=== PATIENT | male | born 1980 | race Hispanic/Latino ===

== ENCOUNTER 2018-03-24 23:58 | Emergency (ER) | payer BC ==
[2018-03-25] MEDS ORDERED: WATER FOR INJ,STERILE 10 ML ONE (00:57)
[2018-03-25] MEDS ORDERED: CEFTRIAXONE 1000 MG/VIAL ONE (00:57)
--- NOTE | 2018-03-25 01:07 | EDPHYS ---
Physician Documentation [facility] Name: Sunil Salinas Jr Age: 37 yrs Sex: Male : 1980 Arrival Date: 03/25/2018 Time: 00:02 Bed 6 Private MD: ED Physician Rancho Perdoza HPI: 03/25 00:58 This 37 yrs old Male presents to ER via Ambulatory with complaints of Leg Pain.gs 00:58 The patient presents with cellulitis of the medial aspect of right thigh. Description: gs The affected area is moderate sized, confluent, erythematous, warm. Onset: The symptoms/episode began/occurred yesterday. Possible cause(s): unknown. Associated signs and symptoms: Pertinent negatives: fever. Modifying factors: the symptoms are alleviated by nothing, the symptoms are aggravated by nothing. Severity of symptoms: At their worst the symptoms were moderate, in the emergency department the symptoms are unchanged. The patient has not experienced similar symptoms in the past. The patient has been recently seen by a physician: the patient's primary care provider. Historical: - Allergies: 00:37 No Known Allergies; ak1 - Home Meds: 00:38 lisinopril 20 mg Oral tab 1 tab once daily [Active]; Protonix 40 mg Oral grps 1 packet ak1 once daily [Active]; - PMHx: 00:37 Hyperlipidemia; ak1 00:38 Hypertension; GERD; ak1 - PSHx: 00:37 None; ak1 - Immunization history:: Last tetanus immunization: unknown. - Social history:: Smoking status: Patient/guardian denies using tobacco. - Ebola Screening: : Patient negative for fever greater than or equal to 101.5 degrees Fahrenheit, and additional compatible Ebola Virus Disease symptoms Patient denies exposure to infectious person Patient denies travel to an Ebola-affected area in the 21 days before illness onset. ROS: 00:58 All other systems are negative. gs Exam: 00:58 Head/Face: Normocephalic, atraumatic. Eyes: Pupils equal round and reactive to light, gs extra-ocular motions intact. Lids and lashes normal. Conjunctiva and sclera are non-icteric and not injected. Cornea within normal limits. Periorbital areas with no swelling, redness, or edema. ENT: Nares patent. No nasal discharge, no septal abnormalities noted. Tympanic membranes are normal and external auditory canals are clear. Oropharynx with no redness, swelling, or masses, exudates, or evidence of obstruction, uvula midline. Mucous membranes moist. Neck: Trachea midline, no thyromegaly or masses palpated, and no cervical lymphadenopathy. Supple, full range of motion without nuchal rigidity, or vertebral point tenderness. No Meningismus. Chest/axilla: Normal chest wall appearance and motion. Nontender with no deformity. No lesions are appreciated. Cardiovascular: Regular rate and rhythm with a normal S1 and S2. No gallops, murmurs, or rubs. Normal PMI, no JVD. No pulse deficits. Respiratory: Lungs have equal breath sounds bilaterally, clear to auscultation and percussion. No rales, rhonchi or wheezes noted. No increased work of breathing, no retractions or nasal flaring. Abdomen/GI: Soft, non-tender, with normal bowel sounds. No distension or tympany. No guarding or rebound. No evidence of tenderness throughout. Back: No spinal tenderness. No costovertebral tenderness. Full range of motion. MS/ Extremity: Pulses equal, no cyanosis. Neurovascular intact. Full, normal range of motion. Neuro: Awake and alert, GCS 15, oriented to person, place, time, and situation. Cranial nerves II-XII grossly intact. Motor strength 5/5 in all extremities. Sensory grossly intact. Cerebellar exam normal. Normal gait. 00:58 Constitutional: The patient appears alert, awake, non-toxic. 00:58 Skin: cellulitis, that is moderate, induration, that is mild is noted, located on the medial aspect of right thigh, Other very small area of cellulitis has area of induration, no extension or tenderness in perineum or scrotum. . Vital Signs: 00:15 BP 159 / 97; Pulse 96; Resp 20; Temp 98.4(O); Pulse Ox 97% on R/A; Weight 122.47 kg fc (R); Height 5 ft. 8 in. (172.72 cm) (R); Pain 6/10; 00:57 BP 125 / 73; Pulse 90; Resp 18; Temp 98.4; Pulse Ox 97% on R/A; ak1 00:15 Body Mass Index 41.05 (122.47 kg, 172.72 cm) MDM: 00:30 Patient medically screened. 00:58 Differential diagnosis: cellulitis. Data reviewed: vital signs, nurses notes. Counseling: I had a detailed discussion with the patient and/or guardian regarding: the historical points, exam findings, and any diagnostic results supporting the discharge/admit diagnosis, the need for outpatient follow up, to return to the emergency department if symptoms worsen or persist or if there are any questions or concerns that arise at home. Response to treatment: the patient's symptoms have mildly improved after treatment. Administered Medications: 00:54 Not Given (Duplicate Order): Rocephin - (cefTRIAXone) 1 grams IVPB once over 30 mins; gs (mix in 50 mL NS) 00:57 Drug: Rocephin (cefTRIAXone) 1 grams Route: IM; Site: right gluteus; ak1 01:09 Follow up: Response: No adverse reaction ak1 Disposition: 03/25/18 01:07 Discharged to Home. Impression: Cellulitis of right lower limb. - Condition is Stable. - Discharge Instructions: Cellulitis, Adult. - Prescriptions for Clindamycin HCl 300 mg Oral Capsule - take 1 capsule by ORAL route every 8 hours for 7 days; 21 capsule. Keflex 500 mg Oral Capsule - take 1 capsule by ORAL route every 8 hours for 7 days; 21 capsule. - Medication Reconciliation Form, Thank You Letter, Antibiotic Education, Prescription Opioid Use form. - Follow up: Private Physician; When: 2 - 3 days; Reason: Re-evaluation by your physician. Signatures: Mahsa Silva RN RN Hellen Haley RN RN [facility] Rancho Pedroza MD MD Corrections: (The following items were deleted from the chart) 01:14 01:07 03/25/2018 01:07 Discharged to Home. Impression: Cellulitis of right lower limb. ak1 Condition is Stable. Forms are Medication Reconciliation Form, Thank You Letter, Antibiotic Education, Prescription Opioid Use. Follow up: Private Physician; When: 2 - 3 days; Reason: Re-evaluation by your physician.
--- NOTE | 2018-03-25 01:07 | ER ---
Nurse's Notes [facility] Name: Sunil Salinas Jr Age: 37 yrs Sex: Male : 1980 Arrival Date: 03/25/2018 Time: 00:02 Bed 6 Private MD: Diagnosis: Cellulitis of right lower limb Presentation: 03/25 00:15 Presenting complaint: Patient states: that he is having pain and burning to inner right fc thigh with some redness and warmth. Unknown cause. Transition of care: patient was not received from another setting of care. Onset of symptoms was March 24, 2018 at 14:00. Risk Assessment: Do you want to hurt yourself or someone else? Patient reports no desire to harm self or others. Initial Sepsis Screen: Does the patient meet any 2 criteria? HR > 90 bpm. Yes Does the patient have a suspected source of infection? Yes: Skin breakdown/wound If YES to both, name of provider notified: Rancho Pedroza MD. Care prior to arrival: None. 00:15 Method Of Arrival: Ambulatory fc 00:15 Acuity: JU 4 fc Triage Assessment: 00:15 General: Appears uncomfortable, obese, Behavior is calm, cooperative, appropriate for age. Pain: Complains of pain in medial aspect of right thigh Pain currently is 6 out of 10 on a pain scale. Quality of pain is described as burning, Pain began 1 day ago. Is continuous. EENT: No deficits noted. Neuro: Level of Consciousness is awake, alert, obeys commands, Oriented to person, place, time, situation. Cardiovascular: No deficits noted. Respiratory: No deficits noted. GI: No deficits noted. : No deficits noted. Derm: Skin is pink, warm \T\ dry. except area to right inner thigh that is red and tender Reports burning. Musculoskeletal: Circulation, motion, and sensation intact. Capillary refill < 3 seconds, Range of motion: intact in all extremities. Historical: - Allergies: 00:37 No Known Allergies; ak1 - Home Meds: 00:38 lisinopril 20 mg Oral tab 1 tab once daily [Active]; Protonix 40 mg Oral grps 1 packet ak1 once daily [Active]; - PMHx: 00:37 Hyperlipidemia; ak1 00:38 Hypertension; GERD; ak1 - PSHx: 00:37 None; ak1 - Immunization history:: Last tetanus immunization: unknown. - Social history:: Smoking status: Patient/guardian denies using tobacco. - Ebola Screening: : Patient negative for fever greater than or equal to 101.5 degrees Fahrenheit, and additional compatible Ebola Virus Disease symptoms Patient denies exposure to infectious person Patient denies travel to an Ebola-affected area in the 21 days before illness onset. Screenin:30 Abuse screen: Denies threats or abuse. Nutritional screening: No deficits noted. fc Tuberculosis screening: No symptoms or risk factors identified. Fall Risk None identified. Assessment: 00:20 Reassessment: No changes from previously documented assessment. Patient and/or family fc updated on plan of care and expected duration. Pain level reassessed. Patient is alert, oriented x 3, equal unlabored respirations, skin warm/dry/pink. Dr Pedroza in to see and examine pt. Vital Signs: 00:15 BP 159 / 97; Pulse 96; Resp 20; Temp 98.4(O); Pulse Ox 97% on R/A; Weight 122.47 kg fc (R); Height 5 ft. 8 in. (172.72 cm) (R); Pain 6/10; 00:57 BP 125 / 73; Pulse 90; Resp 18; Temp 98.4; Pulse Ox 97% on R/A; ak1 00:15 Body Mass Index 41.05 (122.47 kg, 172.72 cm) fc ED Course: 00:02 Patient arrived in ED. ds1 00:15 Arm band placed on Patient placed in an exam room, on a stretcher. fc 00:22 Rancho Pedroza MD is Attending Physician. gs 00:28 Triage completed. fc 00:31 Patient has correct armband on for positive identification. Bed in low position. Call fc light in reach. 00:31 No provider procedures requiring assistance completed. Patient did not have IV access fc during this emergency room visit. 00:48 Hellen Haley, RN is Primary Nurse. ak1 Administered Medications: 00:54 Not Given (Duplicate Order): Rocephin - (cefTRIAXone) 1 grams IVPB once over 30 mins; gs (mix in 50 mL NS) 00:57 Drug: Rocephin (cefTRIAXone) 1 grams Route: IM; Site: right gluteus; ak1 01:09 Follow up: Response: No adverse reaction ak1 Outcome: 01:07 Discharge ordered by . angie 01:10 Condition: stable ak1 01:13 Discharged to home ambulatory. ak1 01:13 Discharge instructions given to patient, Instructed on discharge instructions, follow up and referral plans. medication usage, Demonstrated understanding of instructions, follow-up care, medications, Prescriptions given X 2. 01:14 Patient left the ED. ak1 Signatures: Mahsa Silva RN RN fc [place], Demi ds1 Hellen Haley RN RN ak1 Rancho Pedroza MD MD gs
== END 2018-03-25 01:14 | disposition home or self-care (01) ==
LOC: ER 23:58
DX: L03.115 Cellulitis of right lower limb (principal); I10 Essential (primary) hypertension; K21.9 Gastro-esophageal reflux disease without esophagitis
CPT/HCPCS: 96372; 99283

== ENCOUNTER 2018-04-14 22:20 | Emergency (ER) | payer BC ==
[2018-04-14] MEDS ORDERED: DIPHENHYDRAMINE 25 MG TAB/CAP ONE (22:52)
[2018-04-14] MEDS ORDERED: METHYLPREDNISOLONE 125 MG INJ ONE (22:52)
[2018-04-14] MEDS ORDERED: FAMOTIDINE 20 MG/2 ML VIAL IV ONE (22:53)
--- NOTE | 2018-04-14 23:33 | ER ---
Nurse's Notes [facility] Name: Sunil Salinas Jr Age: 37 yrs Sex: Male : 1980 Arrival Date: 04/14/2018 Time: 22:24 Bed 6 Private MD: Malachi James Diagnosis: allergic reaction Presentation: 04/14 22:45 Presenting complaint: Patient states: Pt reports that he was watching the game when his ea face started swelling and he started having facial pain. Transition of care: patient was not received from another setting of care. Onset: The symptoms/episode began/occurred acutely. Anaphylaxis evaluation, no signs or symptoms of anaphylaxis were noted. Onset of symptoms was April 14, 2018. Risk Assessment: Do you want to hurt yourself or someone else? Patient reports no desire to harm self or others. Initial Sepsis Screen: Does the patient meet any 2 criteria? No. Patient's initial sepsis screen is negative. Does the patient have a suspected source of infection? No. Patient's initial sepsis screen is negative. Care prior to arrival: None. 22:45 Method Of Arrival: Ambulatory ea 22:45 Acuity: JU 3 ea Triage Assessment: 22:45 General: Appears uncomfortable, Behavior is calm, cooperative, appropriate for age. ea Pain: Complains of pain in right eye. Neuro: Level of Consciousness is awake, alert, obeys commands, Oriented to person, place, time, situation. Cardiovascular: Heart tones S1 S2 present Patient's skin is warm and dry. Respiratory: Airway is patent Respiratory effort is even, unlabored, Respiratory pattern is regular, symmetrical, Breath sounds are clear bilaterally. Respiratory: Denies shortness of breath. GI: Abdomen is non-distended, Bowel sounds present X 4 quads. Derm: redness and swelling to face. Historical: - Allergies: 23:11 Peanut; ea - Home Meds: 23:11 amlodipine oral [Active]; ea - PMHx: 23:11 GERD; Hyperlipidemia; Hypertension; ea - PSHx: 23:11 None; ea - Immunization history:: Adult Immunizations up to date. - Social history:: Smoking status: Patient/guardian denies using tobacco. - Ebola Screening: : No symptoms or risks identified at this time. Screenin:03 Abuse screen: Denies threats or abuse. Nutritional screening: No deficits noted. ea Tuberculosis screening: No symptoms or risk factors identified. Fall Risk None identified. Assessment: 23:29 Reassessment: Patient and/or family updated on plan of care and expected duration. Pain ea level reassessed. Patient is alert, oriented x 3, equal unlabored respirations, skin warm/dry/pink. Respiratory: Airway is patent Respiratory effort is even, unlabored, Respiratory pattern is regular, symmetrical. Vital Signs: 22:45 BP 148 / 133; Pulse 81; Resp 18; Temp 98(O); Pulse Ox 96% on R/A; Weight 119.75 kg; ea Height 5 ft. 8 in. (172.72 cm); Pain 7/10; 23:26 BP 146 / 96; Pulse 77; Resp 16; Pulse Ox 96% on R/A; ea 22:45 Body Mass Index 40.14 (119.75 kg, 172.72 cm) ea ED Course: 22:24 Patient arrived in ED. al2 22:25 Malachi James MD is Private Physician. al2 22:35 Bill Navas MD is Attending Physician. tw4 22:45 Patient has correct armband on for positive identification. Bed in low position. Call ea light in reach. Side rails up X 1. 22:45 Arm band placed on right wrist. Patient placed in an exam room. ea 22:47 Inserted saline lock: 20 gauge in right antecubital area, using aseptic technique. jb5 Blood collected. 23:02 Rachelle Kumari, RN is Primary Nurse. ea 23:08 Triage completed. ea 23:32 Malachi James MD is Referral Physician. tw4 23:50 No provider procedures requiring assistance completed. IV discontinued, intact, ao bleeding controlled, No redness/swelling at site. Pressure dressing applied. Administered Medications: 22:51 Drug: SOLU-Medrol 125 mg Route: IVP; Site: right antecubital; ea 22:51 Drug: Benadryl 25 mg Route: PO; ea 22:51 Drug: Pepcid 20 mg Route: PO; ea Outcome: 23:33 Discharge ordered by . tw4 23:50 Discharged to home ambulatory. ao 23:50 Condition: stable 23:50 Discharge instructions given to patient, Instructed on discharge instructions, follow up and referral plans. Demonstrated understanding of instructions, follow-up care, medications, Prescriptions given X 2. 23:52 Patient left the ED. ao Signatures: Chay Salmeron, RN Lupe Moyer5 Rahcelle Kumari, RN BLANCHE Mccloud, Bill Balderrama MD MD tw4
--- NOTE | 2018-04-14 23:34 | EDPHYS ---
Physician Documentation [facility] Name: Sunil Salinas Jr Age: 37 yrs Sex: Male : 1980 Arrival Date: 04/14/2018 Time: 22:24 Bed 6 Private MD: Malachi James ED Physician Bill Navas HPI: 04/14 22:58 This 37 yrs old Male presents to ER via Unassigned with complaints of Allergic tw4 Reaction. 22:58 The patient presents with chest pain. Onset: The symptoms/episode began/occurred just tw4 prior to arrival. Associated signs and symptoms: The patient has no apparent associated signs or symptoms. Possible causes: HUMMUS. At home the patient or guardian has treated the symptoms with nothing. Severity of symptoms: At their worst the symptoms were moderate in the emergency department the symptoms are unchanged. The patient has not experienced similar symptoms in the past. Historical: - Allergies: 23:11 Peanut; ea - Home Meds: 23:11 amlodipine oral [Active]; ea - PMHx: 23:11 GERD; Hyperlipidemia; Hypertension; ea - PSHx: 23:11 None; ea - Immunization history:: Adult Immunizations up to date. - Social history:: Smoking status: Patient/guardian denies using tobacco. - Ebola Screening: : No symptoms or risks identified at this time. ROS: 22:58 Constitutional: Negative for fever, chills, and weight loss, Cardiovascular: Negative tw4 for chest pain, palpitations, and edema, Respiratory: Negative for shortness of breath, cough, wheezing, and pleuritic chest pain, Abdomen/GI: Negative for abdominal pain, nausea, vomiting, diarrhea, and constipation, Back: Negative for injury and pain. 22:58 MS/Extremity: Negative for injury and deformity, Neuro: Negative for headache, weakness, numbness, tingling, and seizure, Psych: Negative for depression, anxiety, suicide ideation, homicidal ideation, and hallucinations. 22:58 Skin: Positive for rash, diffusely. Exam: 22:58 Constitutional: This is a well developed, well nourished patient who is awake, alert, tw4 and in no acute distress. Head/Face: Normocephalic, atraumatic. Chest/axilla: Normal chest wall appearance and motion. Nontender with no deformity. No lesions are appreciated. Cardiovascular: Regular rate and rhythm with a normal S1 and S2. No gallops, murmurs, or rubs. Normal PMI, no JVD. No pulse deficits. Respiratory: Lungs have equal breath sounds bilaterally, clear to auscultation and percussion. No rales, rhonchi or wheezes noted. No increased work of breathing, no retractions or nasal flaring. Abdomen/GI: Soft, non-tender, with normal bowel sounds. No distension or tympany. No guarding or rebound. No evidence of tenderness throughout. Back: No spinal tenderness. No costovertebral tenderness. Full range of motion. 22:58 Head/face: Noted is swelling, that is moderate, of the right cheek, left cheek, right jaw and left jaw. 22:58 Skin: urticaria. Vital Signs: 22:45 BP 148 / 133; Pulse 81; Resp 18; Temp 98(O); Pulse Ox 96% on R/A; Weight 119.75 kg; ea Height 5 ft. 8 in. (172.72 cm); Pain 7/10; 23:26 BP 146 / 96; Pulse 77; Resp 16; Pulse Ox 96% on R/A; ea 22:45 Body Mass Index 40.14 (119.75 kg, 172.72 cm) ea MDM: 22:36 Patient medically screened. tw4 04/15 02:48 Differential diagnosis: anaphylaxis, angioedema, Hereditary Angioedema urticaria. Data tw4 reviewed: vital signs, nurses notes. Counseling: I had a detailed discussion with the patient and/or guardian regarding: the historical points, exam findings, and any diagnostic results supporting the discharge/admit diagnosis. Special discussion: I discussed with the patient/guardian in detail that at this point there is no indication for admission to the hospital. It is understood, however, that if the symptoms persist or worsen the patient needs to return immediately for re-evaluation. Administered Medications: 04/14 22:51 Drug: SOLU-Medrol 125 mg Route: IVP; Site: right antecubital; ea 22:51 Drug: Benadryl 25 mg Route: PO; ea 22:51 Drug: Pepcid 20 mg Route: PO; ea Disposition: 04/14/18 23:33 Discharged to Home. Impression: allergic reaction. - Condition is Stable. - Discharge Instructions: Allergies, [id number]. - Prescriptions for Medrol (Kervin) 4 mg Oral Tablets, Dose Pack - take 1 tablet by ORAL route as directed - follow package instructions; 1 packet. EpiPen 0.3 mg Injection auto- injector - inject 1 pen by INTRAMUSCULAR route as directed Inject into the outer portion of the thigh, through clothing if necessary. Indicated in the emergency treatment of allergic reactions; 1 box. - Medication Reconciliation Form, Thank You Letter, Antibiotic Education, Prescription Opioid Use form. - Work release form (04/14/18 23:53). ao - Follow up: Malachi James MD; When: Upon discharge from the Emergency Department; Reason: Further diagnostic work-up, Recheck today's complaints, Continuance of care, Re-evaluation by your physician. - Problem is new. - Symptoms have improved. Signatures: Chay Salmeron, RN RN Rachelle Pena RN RN Bill Murrell MD MD tw4 Corrections: (The following items were deleted from the chart) 23:52 23:33 04/14/2018 23:33 Discharged to Home. Impression: allergic reaction. Condition is ao Stable. Forms are Medication Reconciliation Form, Thank You Letter, Antibiotic Education, Prescription Opioid Use. Follow up: Malachi James; When: Upon discharge from the Emergency Department; Reason: Further diagnostic work-up, Recheck today's complaints, Continuance of care, Re-evaluation by your physician. Problem is new. Symptoms have improved. tw4
[2018-04-14 23:57] VITALS: TEMP 98; O2SAT 96
[2018-04-14 23:58] VITALS: BP 146/96
== END 2018-04-14 23:52 | disposition home or self-care (01) ==
LOC: ER 22:20
DX: T78.1XXA Other adverse food reactions, not elsewhere classified, initial encounter (principal); X58.XXXA Exposure to other specified factors, initial encounter; Z91.010 Allergy to peanuts; I10 Essential (primary) hypertension
CPT/HCPCS: 96374; 99284; J2930

== ENCOUNTER 2018-04-15 20:16 | Emergency (ER) | payer BC ==
[2018-04-15] MEDS ORDERED: DIPHENHYDRAMINE 25 MG TAB/CAP ONE (22:27)
[2018-04-15] MEDS ORDERED: ALBUTEROL 2.5 MG/3 ML NEB SOL ONE (22:27)
[2018-04-15] MEDS ORDERED: DEXAMETHASONE 10 MG/ML VIAL ONE (22:27)
[2018-04-15] MEDS ORDERED: IPRATROPIUM BROM 0.5MG/2.5ML ONE (22:27)
[2018-04-15] MEDS ORDERED: FAMOTIDINE 20 MG/2 ML VIAL IV ONE (22:28)
[2018-04-15] MEDS ORDERED: NA CHLORIDE 0.9% 1,000 ML ONE (22:28)
[2018-04-15 23:29] LABS: Absolute Lymphocytes (CBC) 0.8 K/uL (0.7-4.9); Absolute Monocytes 0.5 K/uL (0.1-1.3); Absolute Neutrophil 11.3 K/uL (1.8-8.0); Basophils % 0.2 % (0-1.3); Hematocrit 43.3 % (39.6-49.0); Lymphocytes % 6.4 % (15.3-44.8); MCH 29.3 pg (27.0-35.0); MCV 87.8 fL (80-100); MPV 9.2 fL (7.6-11.3); RBC Red Blood Cell Count 4.94 M/uL (4.33-5.43)
--- NOTE | 2018-04-15 23:35 | EDPHYS ---
Physician Documentation [facility] Name: Sunil Salinas Jr Age: 37 yrs Sex: Male : 1980 Arrival Date: 04/15/2018 Time: 20:17 Bed 7 Private MD: ED Physician Gomez Mcneil HPI: 04/15 22:05 This 37 yrs old Male presents to ER via Ambulatory with complaints of Throat pat Swelling. 22:05 The patient presents with difficulty swallowing, itching, rash, redness of skin, pat shortness of breath. Onset: The symptoms/episode began/occurred 1 day(s) ago. Associated signs and symptoms: Pertinent positives: rash. Possible causes: The patient has no known obvious cause for the symptoms. The patient has shortness of breath at rest. Duration: The symptoms are continuous, and are unchanged since they started. The patient's shortness of breath has no apparent modifying factors. At home the patient or guardian has treated the symptoms with Benadryl, steroids. Severity of symptoms: At their worst the symptoms were mild in the emergency department the symptoms are unchanged. Historical: - Allergies: 20:28 Peanut; lp1 20:28 MAYA INHIBITORS; lp1 20:28 ARB-Angiotensin Receptor Antagonist; lp1 - Home Meds: 20:28 amlodipine oral [Active]; Protonix 40 mg Oral grps 1 packet once daily [Active]; lp1 - PMHx: 20:28 GERD; Hyperlipidemia; Hypertension; lp1 - PSHx: 20:28 None; lp1 - Immunization history:: Adult Immunizations up to date. - Social history:: Smoking status: Patient/guardian denies using tobacco. - Ebola Screening: : No symptoms or risks identified at this time. - Family history:: not pertinent. ROS: 22:05 Constitutional: Negative for fever, chills, and weight loss, Eyes: Negative for injury, pat pain, redness, and discharge, ENT: Negative for injury, pain, and discharge, Neck: Negative for injury, pain, and swelling, Cardiovascular: Negative for chest pain, palpitations, and edema, Respiratory: Negative for shortness of breath, cough, wheezing, and pleuritic chest pain, Abdomen/GI: Negative for abdominal pain, nausea, vomiting, diarrhea, and constipation, Back: Negative for injury and pain, : Negative for injury, bleeding, discharge, and swelling, MS/Extremity: Negative for injury and deformity, Skin: Negative for injury, rash, and discoloration, Neuro: Negative for headache, weakness, numbness, tingling, and seizure, Psych: Negative for depression, anxiety, suicide ideation, homicidal ideation, and hallucinations, Allergy/Immunology: Negative for hives, rash, and allergies, Endocrine: Negative for neck swelling, polydipsia, polyuria, polyphagia, and marked weight changes, Hematologic/Lymphatic: Negative for swollen nodes, abnormal bleeding, and unusual bruising. Exam: 22:07 Constitutional: This is a well developed, well nourished patient who is awake, alert, pat and in no acute distress. Head/Face: Normocephalic, atraumatic. Eyes: Pupils equal round and reactive to light, extra-ocular motions intact. Lids and lashes normal. Conjunctiva and sclera are non-icteric and not injected. Cornea within normal limits. Periorbital areas with no swelling, redness, or edema. ENT: Nares patent. No nasal discharge, no septal abnormalities noted. Tympanic membranes are normal and external auditory canals are clear. Oropharynx with no redness, swelling, or masses, exudates, or evidence of obstruction, uvula midline. Mucous membranes moist. Neck: Trachea midline, no thyromegaly or masses palpated, and no cervical lymphadenopathy. Supple, full range of motion without nuchal rigidity, or vertebral point tenderness. No Meningismus. Chest/axilla: Normal chest wall appearance and motion. Nontender with no deformity. No lesions are appreciated. Cardiovascular: Regular rate and rhythm with a normal S1 and S2. No gallops, murmurs, or rubs. Normal PMI, no JVD. No pulse deficits. Respiratory: Lungs have equal breath sounds bilaterally, clear to auscultation and percussion. No rales, rhonchi or wheezes noted. No increased work of breathing, no retractions or nasal flaring. Abdomen/GI: Soft, non-tender, with normal bowel sounds. No distension or tympany. No guarding or rebound. No evidence of tenderness throughout. Back: No spinal tenderness. No costovertebral tenderness. Full range of motion. Male : Normal genitalia with no discharge or lesions. Skin: Warm, dry with normal turgor. Normal color with no rashes, no lesions, and no evidence of cellulitis. MS/ Extremity: Pulses equal, no cyanosis. Neurovascular intact. Full, normal range of motion. Neuro: Awake and alert, GCS 15, oriented to person, place, time, and situation. Cranial nerves II-XII grossly intact. Motor strength 5/5 in all extremities. Sensory grossly intact. Cerebellar exam normal. Normal gait. Psych: Awake, alert, with orientation to person, place and time. Behavior, mood, and affect are within normal limits. Vital Signs: 20:27 BP 152 / 96; Pulse 100; Resp 18; Temp 98.5(O); Pulse Ox 97% on R/A; Weight 119.75 kg; lp1 Height 5 ft. 8 in. (172.72 cm); Pain 0/10; 21:26 BP 152 / 83; Pulse 95; Resp 16; Pulse Ox 96% on R/A; Pain 0/10; aa1 23:26 BP 127 / 60; Pulse 108; Resp 18; Pulse Ox 96% on R/A; Pain 0/10; aa1 04/16 00:23 BP 123 / 55; Pulse 91; Resp 16; Temp 98.3; Pulse Ox 97% on R/A; Pain 0/10; aa1 04/15 20:27 Body Mass Index 40.14 (119.75 kg, 172.72 cm) lp1 MDM: 04/15 21:59 Patient medically screened. [facility] 04/15 22:04 Order name: Basic Metabolic Panel; Complete Time: 00:00 [facility] 04/15 22:04 Order name: CBC with Diff [facility] 04/15 22: Order name: LFT's; Complete Time: 00:00 [facility] 04/15 22:04 Order name: Magnesium; Complete Time: 00:00 [facility] 04/15 22:04 Order name: NT PRO-BNP; Complete Time: 00:00 [facility] 04/15 22:04 Order name: Troponin (emerg Dept Use Only); Complete Time: 00:00 [facility] 04/15 22:04 Order name: XRAY Chest (1 view) [facility] 04/15 23:33 Order name: Manual Differential EDMS 04/15 22:04 Order name: EKG; Complete Time: 22:05 [facility] 04/15 22:04 Order name: Cardiac monitoring; Complete Time: 22:49 pat 04/15 22:04 Order name: EKG - Nurse/Tech; Complete Time: 22:27 [facility] 04/15 22:04 Order name: IV Saline Lock; Complete Time: 22:49 [facility] 04/15 22:04 Order name: Labs collected and sent; Complete Time: 22:49 [facility] 04/15 22:04 Order name: O2 Per Protocol; Complete Time: 22:49 [facility] 04/15 22:04 Order name: O2 Sat Monitoring; Complete Time: 22:49 [facility] Administered Medications: 22:30 Drug: Benadryl 50 mg Route: PO; aa04/16 00:22 Follow up: Response: No adverse reaction; Marked relief of symptoms aa04/15 22:35 Drug: NS 0.9% 1000 ml Route: IV; Rate: 1 bolus; Site: right antecubital; aa 23:37 Follow up: IV Status: Completed infusion aa 22:35 Not Given (Other Intervention Used; med out of stock): Benadryl 50 mg IVP once aa 22:35 Drug: Pepcid 40 mg Route: IVP; Site: right antecubital; aa04/16 00:22 Follow up: Response: No adverse reaction; Marked relief of symptoms aa04/15 22:35 Drug: Albuterol - atroVENT (3:1) (2.5 mg - 0.5 mg) 3 ml Route: Nebulizer; aa04/16 00:22 Follow up: Response: No adverse reaction; Marked relief of symptoms 04/15 22:36 Drug: Decadron - Dexamethasone 10 mg Route: IVP; Site: right antecubital; aa04/16 00:22 Follow up: Response: No adverse reaction; Marked relief of symptoms aa04/15 23:38 Drug: predniSONE 40 mg Route: PO; aa04/16 00:21 Follow up: Response: No adverse reaction; Marked relief of symptoms aa Disposition: 04/15/18 23:35 Discharged to Home. Impression: Food allergy status, Food additives allergy status. - Condition is Stable. - Discharge Instructions: Allergies, Adult, Food Allergy, Food Allergy, Duhr-cm-Hnae, Allergies, Yrqy-dg-Pvlw, Substitutions for Common Food Allergies. - Prescriptions for Benadryl 25 mg Oral Capsule - take 2 capsule by ORAL route every 6 hours As needed; 45 tablet. Pepcid 20 mg Oral Tablet - take 1 tablet by ORAL route every 12 hours for 10 days; 20 tablet. Prednisone 20 mg Oral Tablet - take 2 tablet by ORAL route once daily for 5 days; 10 tablet. EpiPen 0.3 mg Injection auto- injector - inject 1 pen by INTRAMUSCULAR route one time Inject into the outer portion of the thigh, through clothing if necessary. Indicated in the emergency treatment of allergic reactions; 1 box. - Medication Reconciliation Form, Thank You Letter, Antibiotic Education, Prescription Opioid Use form. - Follow up: Private Physician; When: 2 - 3 days; Reason: Recheck today's complaints, Continuance of care, Re-evaluation by your physician. - Problem is new. - Symptoms have improved. Signatures: Dispatcher [employer] EDAshly Merino RN RN aa1 Gomez Mcneil MD MD cha Pena, Laura RN RN lp1 Corrections: (The following items were deleted from the chart) 00:25 04/15 23:35 04/15/2018 23:35 Discharged to Home. Impression: Food allergy status; Food aa1 additives allergy status. Condition is Stable. Discharge Instructions: Allergies, Adult, Food Allergy, Food Allergy, Lktx-rn-Reju, Allergies, [id number]-[id number], Substitutions for Common Food Allergies. Prescriptions for Benadryl 25 mg Oral Capsule - take 2 capsule by ORAL route every 6 hours As needed; 45 tablet, Pepcid 20 mg Oral Tablet - take 1 tablet by ORAL route every 12 hours for 10 days; 20 tablet, Prednisone 20 mg Oral Tablet - take 2 tablet by ORAL route once daily for 5 days; 10 tablet, EpiPen 0.3 mg Injection auto-injector - inject 1 pen by INTRAMUSCULAR route one time Inject into the outer portion of the thigh, through clothing if necessary. Indicated in the emergency treatment of allergic reactions; 1 box. and Forms are Medication Reconciliation Form, Thank You Letter, Antibiotic Education, Prescription Opioid Use. Follow up: Private Physician; When: 2 - 3 days; Reason: Recheck today's complaints, Continuance of care, Re-evaluation by your physician. Problem is new. Symptoms have improved. pat
--- NOTE | 2018-04-15 23:35 | ER ---
Nurse's Notes [facility] Name: Sunil Slainas Jr Age: 37 yrs Sex: Male : 1980 Arrival Date: 04/15/2018 Time: 20:17 Bed 7 Private MD: Diagnosis: Food allergy status;Food additives allergy status Presentation: 04/15 20:26 Presenting complaint: Patient states: Seen here last night for allergic reaction, lp1 states today same feeling came back and he felt like he couldn't swallow, eyes puffy; States Medrol pack that was prescribed. Transition of care: patient was not received from another setting of care. Onset of symptoms was April 15, 2018. Risk Assessment: Do you want to hurt yourself or someone else? Patient reports no desire to harm self or others. Initial Sepsis Screen: Does the patient meet any 2 criteria? No. Patient's initial sepsis screen is negative. Does the patient have a suspected source of infection? No. Patient's initial sepsis screen is negative. Care prior to arrival: None. 20:26 Method Of Arrival: Ambulatory lp1 20:26 Acuity: JU 2 lp1 Triage Assessment: 20:29 General: Appears in no apparent distress. Behavior is anxious. Pain: Denies pain. EENT: lp1 Throat is clear. Respiratory: Airway is patent Respiratory effort is even, unlabored. Historical: - Allergies: 20:28 Peanut; lp1 20:28 MAYA INHIBITORS; lp1 20:28 ARB-Angiotensin Receptor Antagonist; lp1 - Home Meds: 20:28 amlodipine oral [Active]; Protonix 40 mg Oral grps 1 packet once daily [Active]; lp1 - PMHx: 20:28 GERD; Hyperlipidemia; Hypertension; lp1 - PSHx: 20:28 None; lp1 - Immunization history:: Adult Immunizations up to date. - Social history:: Smoking status: Patient/guardian denies using tobacco. - Ebola Screening: : No symptoms or risks identified at this time. - Family history:: not pertinent. Screenin:26 Abuse screen: Denies threats or abuse. Denies injuries from another. Nutritional aa1 screening: No deficits noted. Tuberculosis screening: No symptoms or risk factors identified. Fall Risk None identified. Assessment: 21:26 General: Appears in no apparent distress. comfortable, Behavior is calm, cooperative, aa1 appropriate for age. Pain: Denies pain. Neuro: Level of Consciousness is awake, alert, obeys commands, Oriented to person, place, time, situation. Cardiovascular: Heart tones S1 S2 present Rhythm is regular. Cardiovascular: Denies chest pain, diaphoresis, palpitations. Respiratory: Airway is patent Respiratory effort is even, unlabored, Respiratory pattern is regular, symmetrical, Breath sounds are clear bilaterally. Denies shortness of breath labored breathing. GI: No signs and/or symptoms were reported involving the gastrointestinal system. : No signs and/or symptoms were reported regarding the genitourinary system. EENT: Throat is clear Reports tingling in throat. Derm: Skin is intact, is healthy with good turgor, Skin is pink, warm \T\ dry. Musculoskeletal: Circulation, motion, and sensation intact. Capillary refill < 3 seconds. 22:40 Reassessment: Patient appears in no apparent distress at this time. Patient and/or aa1 family updated on plan of care and expected duration. Pain level reassessed. Patient is alert, oriented x 3, equal unlabored respirations, skin warm/dry/pink. Awaiting lab results. 23:26 Reassessment: Patient appears in no apparent distress at this time. Patient and/or aa1 family updated on plan of care and expected duration. Pain level reassessed. Patient is alert, oriented x 3, equal unlabored respirations, skin warm/dry/pink. Awaiting lab results. 23:39 Reassessment: Provider has ordered discharge however chem 7 has not been resulted yet. aa1 Per MD, do not dispo pt until blood work has returned. 04/16 00:23 Reassessment: Patient appears in no apparent distress at this time. Patient is alert, aa1 oriented x 3, equal unlabored respirations, skin warm/dry/pink. Labs resulted, ok to d/c pt at this time. Discussed d/c \T\ f/u instructions with pt; denies questions or concerns at this time Patient denies pain at this time. Patient states feeling better. Vital Signs: 04/15 20:27 BP 152 / 96; Pulse 100; Resp 18; Temp 98.5(O); Pulse Ox 97% on R/A; Weight 119.75 kg; lp1 Height 5 ft. 8 in. (172.72 cm); Pain 0/10; 21:26 BP 152 / 83; Pulse 95; Resp 16; Pulse Ox 96% on R/A; Pain 0/10; aa1 23:26 BP 127 / 60; Pulse 108; Resp 18; Pulse Ox 96% on R/A; Pain 0/10; aa1 04/16 00:23 BP 123 / 55; Pulse 91; Resp 16; Temp 98.3; Pulse Ox 97% on R/A; Pain 0/10; aa1 04/15 20:27 Body Mass Index 40.14 (119.75 kg, 172.72 cm) lp1 ED Course: 04/15 20:17 Patient arrived in ED. ds1 20:27 Triage completed. lp1 20:28 Arm band placed on left wrist. lp1 21:26 Ashly Beebe, RN is Primary Nurse. aa1 21:26 Patient has correct armband on for positive identification. Bed in low position. Call aa1 light in reach. Pulse ox on. NIBP on. 21:59 Gomez Mcneil MD is Attending Physician. pat 22:27 EKG done, by ED staff, reviewed by Gomez Mcneil MD. ds4 22:30 Initial lab(s) drawn, by in, sent to lab. Inserted saline lock: 18 gauge in right aa1 antecubital area, using aseptic technique. Blood collected. 22:43 XRAY Chest (1 view) In Process Unspecified. EDMS 04/16 00:23 No provider procedures requiring assistance completed. IV discontinued, intact, aa1 bleeding controlled, No redness/swelling at site. Pressure dressing applied. Administered Medications: 04/15 22:30 Drug: Benadryl 50 mg Route: PO; aa1 04/16 00:22 Follow up: Response: No adverse reaction; Marked relief of symptoms aa1 04/15 22:35 Drug: NS 0.9% 1000 ml Route: IV; Rate: 1 bolus; Site: right antecubital; aa1 23:37 Follow up: IV Status: Completed infusion aa1 22:35 Not Given (Other Intervention Used; med out of stock): Benadryl 50 mg IVP once aa1 22:35 Drug: Pepcid 40 mg Route: IVP; Site: right antecubital; aa1 04/16 00:22 Follow up: Response: No adverse reaction; Marked relief of symptoms aa1 04/15 22:35 Drug: Albuterol - atroVENT (3:1) (2.5 mg - 0.5 mg) 3 ml Route: Nebulizer; aa1 04/16 00:22 Follow up: Response: No adverse reaction; Marked relief of symptoms aa1 04/15 22:36 Drug: Decadron - Dexamethasone 10 mg Route: IVP; Site: right antecubital; aa1 04/16 00:22 Follow up: Response: No adverse reaction; Marked relief of symptoms aa1 04/15 23:38 Drug: predniSONE 40 mg Route: PO; aa1 04/16 00:21 Follow up: Response: No adverse reaction; Marked relief of symptoms aa1 Outcome: 04/15 23:35 Discharge ordered by . pat 04/16 00:23 Discharged to home ambulatory, with friend. aa1 Condition: good Discharge instructions given to patient, Instructed on discharge instructions, follow up and referral plans. medication usage, Demonstrated understanding of instructions, follow-up care, medications, Prescriptions given X 4. 00:25 Patient left the ED. aa1 Signatures: Dispatcher [employer] Ashly Brice, RN RN aa1 Gomez Mcneil MD MD cha Sanford, Demi ds1 Faviola Gaitan RN RN lp1 Ezequiel Branch ds4
[2018-04-15] MEDS ORDERED: predniSONE 20 MG TAB ONE (23:42)
[2018-04-15 23:51] LABS: ALT/SGPT 78 U/L (12-78); AST/SGOT 22 U/L (15-37); Albumin 3.7 g/dL (3.4-5.0); Alkaline Phosphatase 122 U/L (45-117); BUN Blood Urea Nitrogen 17 mg/dL (7-18); Bicarbonate 26 mmol/L (21-32); Bilirubin Direct 0.1 mg/dL (0-0.2); Bilirubin Total 0.4 mg/dL (0.2-1.0); Glucose Level 232 mg/dL (74-106); Magnesium 2.2 mg/dL (1.8-2.4); NT PRO-BNP 148 pg/mL (<125); Potassium 4.3 mmol/L (3.5-5.1); Protein, Total 7.5 g/dL (6.4-8.2); Sodium Level 141 mmol/L (136-145); Troponin (Emerg Dept Use Only) < 0.02 ng/mL (0.0-0.045)
[2018-04-16 00:42] VITALS: BP 123/55; TEMP 98.3; O2SAT 97
[2018-04-16 00:55] LABS: Blood Morphology Comment NOT SEEN (NOT SEEN); Platelet Estimate ADEQ
--- NOTE | 2018-04-16 07:18 | RAD REPORT ---
EXAM DESCRIPTION: RAD - Chest Single View - 04/15/2018 10:43 pm CLINICAL HISTORY: Cough, shortness of breath, possible allergic reaction COMPARISON: April 2017 TECHNIQUE: AP portable chest image was obtained 2234 hours . FINDINGS: Lung volumes are low. Markings are accentuated by shallow inspiration, portable technique and large body habitus. No focal mass, consolidation or significant failure finding. Heart and vascul ature are normal. No measurable pleural effusion and no pneumothorax. No acute bony abnormality seen. No acute aortic findings suspected. IMPRESSION: No acute cardiopulmonary process. No significant interval change.
--- NOTE | 2018-04-16 07:34 | EKG ---
Test Date: 2018-04-15 Test Time: 22:22:33 Russian History Professor: AALIYAH MEASUREMENT RESULTS: Intervals: Rate: 90 CO: 230 QRSD: 88 QT: 348 QTc: 425 [place]: P: 50 CO: 230 QRS: 7 T: 36 INTERPRETIVE STATEMENTS: Sinus rhythm with 1st degree AV block Otherwise normal ECG Compared to ECG 11/09/2010 06:47:37 First degree AV block now present Electronically Signed On 04-16-18 07:33:20 CDT by Eric Stone
== END 2018-04-16 00:25 | disposition home or self-care (01) ==
LOC: ER 20:16
DX: R21 Rash and other nonspecific skin eruption (principal); Z91.018 Allergy to other foods; Z91.02 Food additives allergy status; I10 Essential (primary) hypertension; E78.5 Hyperlipidemia, unspecified; K21.9 Gastro-esophageal reflux disease without esophagitis; Z88.8 Allergy status to other drugs, medicaments and biological substances; Z91.010 Allergy to peanuts
CPT/HCPCS: 36415; 71045; 80048; 80076; 83735; 83880; 84484; 85025; 93005; 94640; 96361; 96374; 96375; 99285; J1100; J7030; J7512

== ENCOUNTER 2018-04-16 18:26 | Inpatient (IN) | payer BC ==
[2018-04-16] MEDS ORDERED: IPRATROPIUM BROM 0.5MG/2.5ML NEB PRN (20:50)
[2018-04-16] MEDS ORDERED: ALBUTEROL 2.5 MG/3 ML NEB SOL NEB PRN (20:50)
[2018-04-16] MEDS ORDERED: GLUCAGON 1 MG/VIAL IM PRN (20:50)
[2018-04-16] MEDS ORDERED: D50W 25 GM/50 ML SYRINGE IV PRN (20:50)
[2018-04-16] MEDS: INSULIN -REGULAR HUMAN 50 UNIT/0.5 ML ML SQ SCH (21:00)
[2018-04-16 21:50] LABS: Absolute Lymphocytes (CBC) 2.2 K/uL (0.7-4.9); Absolute Monocytes 0.8 K/uL (0.1-1.3); Basophils % 0.4 % (0-1.3); Hematocrit 42.4 % (39.6-49.0); Lymphocytes % 15.8 % (15.3-44.8); MCH 30.6 pg (27.0-35.0); MCV 87.8 fL (80-100); MPV 9.4 fL (7.6-11.3); Monocytes % 5.6 % (3.3-12.3); RBC Red Blood Cell Count 4.83 M/uL (4.33-5.43)
[2018-04-16 21:55] LABS: Potassium 3.9 mmol/L (3.5-5.1)
[2018-04-16] MEDS: AMLODIPINE 5 MG TAB PO SCH (22:01)
[2018-04-16] MEDS: DIPHENHYDRAMINE 25 MG TAB/CAP PO SCH (22:02)
[2018-04-16] MEDS: ACETAMINOPHEN 500 MG TAB PO PRN (22:43)
[2018-04-16 22:46] VITALS: BMI 40.8
[2018-04-16] MEDS: METHYLPREDNISOLONE 125 MG INJ IV SCH (23:20)
[2018-04-17] MEDS: ALBUTEROL 2.5 MG/3 ML NEB SOL NEB SCH ×4 (01:25→20:09)
[2018-04-17] MEDS: IPRATROPIUM BROM 0.5MG/2.5ML NEB SCH ×4 (01:25→20:09)
[2018-04-17 02:09] LABS: Urine Appearance CLEAR; Urine Bilirubin NEGATIVE (NEG); Urine Blood NEGATIVE (NEG); Urine Color YELLOW; Urine Glucose NEGATIVE (NEG); Urine Protein NEGATIVE (NEG); Urine Specific Gravity >=1.030 (1.005-1.030); Urine Urobilinogen 0.2 mg/dL (0.2-1.0)
[2018-04-17 02:23] LABS: Urine Bacteria <20 /HPF (NONE SEEN); Urine Culture Reflex Order NOT NEEDED; Urine RBC <5 /HPF (NONE SEEN)
[2018-04-17 02:24] LABS: Urine Mucus 1+ /HPF (NONE SEEN)
[2018-04-17] MEDS: METHYLPREDNISOLONE 125 MG INJ IV SCH ×3 (05:49→17:09)
[2018-04-17] MEDS: INSULIN -REGULAR HUMAN 50 UNIT/0.5 ML ML SQ SCH ×4 (07:30→21:00)
[2018-04-17] MEDS: AMLODIPINE 5 MG TAB PO SCH ×2 (09:00→21:43)
[2018-04-17] MEDS: FAMOTIDINE 20 MG/2 ML VIAL IV SCH (09:54)
[2018-04-17] MEDS: DIPHENHYDRAMINE 25 MG TAB/CAP PO SCH ×3 (09:54→21:43)
[2018-04-17] MEDS: ACETAMINOPHEN 500 MG TAB PO PRN (21:42)
[2018-04-18] MEDS: METHYLPREDNISOLONE 125 MG INJ IV SCH ×3 (00:29→13:09)
[2018-04-18] MEDS: ALBUTEROL 2.5 MG/3 ML NEB SOL NEB SCH ×4 (01:23→20:10)
[2018-04-18] MEDS: IPRATROPIUM BROM 0.5MG/2.5ML NEB SCH ×4 (01:23→20:10)
[2018-04-18 09:02] LABS: Absolute Lymphocytes (CBC) 0.9 K/uL (0.7-4.9); Absolute Monocytes 0.3 K/uL (0.1-1.3); Absolute Neutrophil 10.7 K/uL (1.8-8.0); Basophils % 0.3 % (0-1.3); Eosinophils % 0.3 % (0-4.4); Hematocrit 44.4 % (39.6-49.0); Lymphocytes % 7.3 % (15.3-44.8); MCH 30.1 pg (27.0-35.0); MCV 88.7 fL (80-100); MPV 9.1 fL (7.6-11.3); Monocytes % 2.9 % (3.3-12.3)
[2018-04-18] MEDS: DIPHENHYDRAMINE 25 MG TAB/CAP PO SCH ×3 (09:06→23:24)
[2018-04-18] MEDS: FAMOTIDINE 20 MG/2 ML VIAL IV SCH (09:07)
[2018-04-18] MEDS: INSULIN -REGULAR HUMAN 50 UNIT/0.5 ML ML SQ SCH ×4 (09:07→23:25)
[2018-04-18 09:15] LABS: Potassium 4.1 mmol/L (3.5-5.1)
[2018-04-18 13:10] LABS: Platelet Estimate ADEQ
[2018-04-18 13:11] LABS: Blood Morphology Comment NOT SEEN (NOT SEEN)
[2018-04-18] MEDS: METHYLPREDNISOLONE 40 MG INJ IV SCH (17:29)
[2018-04-18] MEDS: AMLODIPINE 5 MG TAB PO SCH (23:24)
[2018-04-19] MEDS: METHYLPREDNISOLONE 40 MG INJ IV SCH ×2 (01:23→09:55)
[2018-04-19] MEDS: IPRATROPIUM BROM 0.5MG/2.5ML NEB SCH ×2 (02:15→08:31)
[2018-04-19] MEDS: ALBUTEROL 2.5 MG/3 ML NEB SOL NEB SCH ×2 (02:15→08:31)
--- NOTE | 2018-04-19 03:42 | PN ---
The patient is seen considerably better today. He still feels occasional episode where of what he de scribes as being some tightness in the neck and throat area. There was no further edema of the eyeli ds, lips, or face. No change in the tonsils either, so I do not feel that this is a significant fact or. Etiology still remains unknown. I will try and decrease his steroid dose. Keep him overnight d ue to the persistence of recurrence with lower doses of steroids, and if it is stabilized on the lowe r dose of Solu-Medrol, he should be able to be discharged on oral medication in the morning. HR/MODL Voice ID: [id number] Report ID: [id number]
--- NOTE | 2018-04-19 03:42 | HP ---
Date of Admission: 04/16/2018 Entrance Complaint: Facial edema, difficulty swallowing. History Of Present Illness: The patient has had the above-outlined symptoms for the past few days. He has been treated as an acute allergic reaction, etiology unknown. He has had multiple visits to [facility] and the office and maintained status quo on steroids, rather significant doses, how ever, never reached the point where he has been back to normal. He had one significant episode of dy sphagia after being treated in the emergency room and was therefore decided to admit him for more frank und the clock in intensive care and probably get an ENT consult. Past History: The patient does have a history of peanut allergy. He has no idea of what triggered t his episode. He was recently, about 2 weeks ago, switched from an MAYA to a calcium channel castro, beta castro. Social History: Nonsmoker, nondrinker. Family History: Noncontributory. Physical Examination: General: The patient is a slightly overweight, middle-aged male with obvious edema of his face, adama cially his eyelids and lips and cheeks. Head and Neck: Normocephalic. Pupils equal, reactive to light and accommodation. Fundi negative. Trachea midline. Thyroid not palpable. Throat does reveal markedly enlarged tonsils. No enlargemen t of the uvula. There does not seem to be any edema in the area. His main complaint may be aggravat ed by the enlarged tonsils knowing the prior history of tonsillitis; however, he states that whenever his throat gets tight this may be a contributing factor unlikely the etiological factor. Chest: Clear to P and A. Cardiovascular: PMI midclavicular line. Heart: Sounds normal. Peripheral pulses present and equal bilaterally. Abdomen: No organomegaly. Bowel sounds present. Extremities: Good tone and movement bilaterally. Reflexes physiologic. Rectal: Deferred. Impression: Urticaria, acute, severe, unknown etiology, hypertension, controlled. Plan: The patient will be admitted and placed on IV steroids, inhalation therapy, which he does stat e relief the discomfort feeling in the lateral part of his neck and throat and consultation will be o btained with Dr. Nichole. HR/MODL Voice ID: [id number]
[2018-04-19 04:51] VITALS: TEMP 97.5
[2018-04-19 08:38] VITALS: BP 141/79
[2018-04-19 09:40] VITALS: O2SAT 96
[2018-04-19] MEDS: FAMOTIDINE 20 MG/2 ML VIAL IV SCH (09:55)
[2018-04-19] MEDS: DIPHENHYDRAMINE 25 MG TAB/CAP PO SCH (09:55)
[2018-04-19] MEDS: INSULIN -REGULAR HUMAN 50 UNIT/0.5 ML ML SQ SCH ×2 (09:55→11:56)
--- NOTE | 2018-04-19 10:46 | P.CNS ---
Date of Consult: 04/18/18 See full dictation to follow In summary, 2-3+ tonsils without s/sx infection. Concern for KRISTEN but no likely contributing to reason for admission Dysphagia - outpatient MBS discussed with patient since symptoms are currently mild, chronic >6m, and not progressing Recurrent facial edema - cause uncertain. Clinically not infectious (no cellutitis findings on photos). Strongly recommend outpatient evaluation by Cat Scanner Operator for trigger and possible work up for other causes of hives, edema, etc.
--- NOTE | 2018-04-19 20:33 | CON ---
Date of Consultation: 04/18/2018 Reason For Consultation: Severe allergic reaction, tonsillar hypertrophy. History Of Present Illness: The patient is a 37-year-old who was admitted for facial swelling and se gavi allergic reaction by his primary care doctor, Dr. James. In reviewing his overall history, basilia navarrete patient reports that approximately 1 year ago, he had a severe allergic reaction. He reports that he was eating trail mix, which included a number of materials including chocolates and peanuts. He s tated that shortly after eating the trail mix, he had a sensation of residue in his mouth and throat with a funny sensation including change of sensation of the lip, jaw, and mouth area. He reports petey t at that time, he was seen at the [facility] Emergency Room and treated with Benadryl and Pepcid with some improvement. He was prescribed an EpiPen and the presumption was that the reaction was to peanuts, b ut he never underwent any formal allergy evaluation or testing. He reports that approximately 6 months ago he began to have some dysphagia, which he describes as a s ensation of food sticking in the throat. He has not had any specific choking episodes. He has never required the Heimlich maneuver. The dysphagia is intermittent and fluctuant in its intensity, but g enerally seems to be worse with rice or similar type of granular foods. He has found some improvemen t by being more mindful when he is eating, eating more slowly and taking smaller bites of food. He h as not had any formal evaluation of his swallowing. More recently, the patient reports that on y prior to admission, he was eating some homemade chicken wings, which had been fried in vegetable oi l, also having some [place] sprouts and potatoes, none of which were new or unusual foods for him to eat. He began having swelling of the face, neck, and throat with some itching sensation and was see n in the emergency room at [facility], and treated with medications and discharged home. On the following , he did not have pain, but had persistent swelling, especially around the eye, and was seen by Dr. James on Sunday, and the patient continued to have symptoms which were worse following dinner at which time he had eaten some chicken spaghetti and avocado. He felt the swelling in his tongue and t hroat was worse. He had a panicked sensation because of this and was seen in the emergency room and treated with steroids. He later was seen by Dr. James and received a Decadron shot in the office. Later that afternoon, on re-examination by Dr. James, he was noted to have enlarged tonsils and th roat swelling and was admitted for monitoring and steroid treatment. Over the last 48 hours since hi s admission, he has been treated with IV steroids. The swelling of the face and around the eye have completely resolved, and are now near baseline. He states that his jaws feel like a "sensation there " and points to the region of the submandibular gland. He denies having any stridor or difficulty br eathing with any of these recent episodes, but does have a childhood history of asthma and is not on any current medications. He also reports he was treated for cellulitis of the leg 1-2 weeks ago with oral antibiotics. He also notes that approximately 3-4 weeks ago, he had a sensation of his throat swelling after eatin brittany olivares from a local [employer] food restaurant in [place] and was seen at the [facility] and treated with a steroid shot and discharged home. Currently, at the time of my visit, he h as been tolerating a clear liquid diet without difficulty. He is tolerating his secretions well and is pending a trial of regular diet. Past Medical History: Hypertension, obesity, possible prediabetic, fatty liver. Past Surgical History: Finger reattachment, EGD secondary to epigastric pain. Social History: Denies tobacco. He has occasional alcohol approximately once a month and denies any history of illicit drug use. He is . Family History: Mother with hypertension. Review of Systems: No fever, weakness, night sweats. The patient does endorse weight gain. He has no vision changes. ENT review of systems as documented above. He denies current chest pain. He denies current shortnes s of breath. He does have snoring, but has never been told that he has witnessed apnea. He has not undergone evaluation for sleep apnea in the past. He denies any numbness or weakness of the extremit ies. No current nausea, vomiting, or diarrhea. He denies history of depression or manic episodes. No current or recent headache issues. Physical Examination: General: The patient is in no acute distress. Vital Signs: Stable. His blood pressure has been mildly elevated during his hospitalization. He nolasco s been afebrile throughout his hospitalization. HEENT: His face is normocephalic and symmetric and atraumatic. There is no discernible edema at the time of my visit of his eyelids, though previous photo is viewed from the patient's documentation de monstrating moderate to severe edema of the right upper and lower eyelid and right cheek with no sign ificant erythema or redness noted of the skin. His pupils are equal, round, reactive. His extraocul ar movements are intact. His nares are patent. His septum is approximately midline and his lips, gi ngiva, teeth are unremarkable. His floor of mouth is flat and soft. He has no dysarthria, no strido r, no stertor. His tongue is large, but otherwise without lesions. His oropharynx show moderately e nlarged tonsils approximately 2 to 2.5+. There is no deviation of the uvula. There is no erythema o r exudates of the tonsils or palate, and the posterior pharyngeal wall is unremarkable. Neck: Soft to palpation and obese. Measurement of the neck was not performed today. The patient nolasco s good voice quality, good projection, and mild raspiness, but no breathiness or significant hoarsene ss is noted. I cannot palpate any enlarged cervical lymph nodes, and his thyroid gland is difficult to palpate. His breathing is nonlabored. Chest: Excursion with breathing is symmetric. Abdomen: Obese, but soft. Neurologic: His judgment and affect are congruent and unaltered. Laboratory Data: At the time of admission, his white blood cell count was 14, and is decreased to 12 on the day of the evaluation. Review of prior medical records indicate emergency room evaluations o n March 24 for leg pain as well as visits on April 14 and for conditions similar to the swelling. No imaging studies are associated with those emergency room visits and his white count on the was mildly elevated at 12.7 with a left shift and 4 bands. This may have been from de-margin alization due to prior steroid administration. Assessment: 1.Facial and eyelid edema of uncertain etiology. I feel he would benefit from a formal allergy eval uation on an outpatient basis. 2.Tonsillar hypertrophy. The degree of hypertrophy is moderate. I do not see particular cause for concern in this setting. There is no evidence of tonsillar infection contributing to his symptoms. Large tonsils, large tongue, obesity, a large neck circumference, and snoring are all risk factors fo r sleep apnea, and he would benefit from home sleep study and possible initiation of the CPAP therapy , particularly in light of his hypertension. 3.Dysphagia. We discussed the patient's chronic dysphagia, which is mild and generally limited to c ertain foods and improved with dietary and behavioral modifications. He may benefit from an outpatie nt modified barium swallow, but seems only minimally motivated to pursue this. Alternative would be for continued observation with further evaluation if symptoms worsen. Overall, patient can continue steroid weaning and follow up with me on an as-needed basis. We discussed the allergy evaluation and the patient's son underwent prior visit with Dr. Estevez, and he would be interested in seeing him on an outpatient basis. MARIUM Voice ID: [id number] Report ID: [id number]
== END 2018-04-19 13:02 | disposition home or self-care (01) | DRG 607 ==
LOC: 4TH 19:40 → OBSVTOIN 19:40 → INTOOBSV 19:40 → OBSVTOIN 04-18 16:43
PROVIDERS: ADMIT Family Medicine; ATTEND Family Medicine
DX: L50.9 Urticaria, unspecified (principal); R60.9 Edema, unspecified; I10 Essential (primary) hypertension; R13.10 Dysphagia, unspecified; J35.1 Hypertrophy of tonsils; E66.9 Obesity, unspecified; K76.0 Fatty (change of) liver, not elsewhere classified
CPT/HCPCS: 36415; 80048; 81001; 82962; 85025; J2920; J2930

== ENCOUNTER 2018-10-13 09:50 | Emergency (ER) | payer BC ==
--- NOTE | 2018-10-13 10:23 | EDPHYS ---
Physician Documentation [facility] Name: Sunil Salinas Jr Age: 38 yrs Sex: Male : 1980 Arrival Date: 10/13/2018 Time: 09:53 Bed 7 Private MD: Malachi James ED Physician Gomez Mcneil HPI: 10/13 10:33 This 38 yrs old Male presents to ER via Ambulatory with complaints of Wheezing snw > 1 Year. 10:33 The patient presents to the emergency department with wheezing, that began weather snw change. Onset: The symptoms/episode began/occurred suddenly, and became persistent. Associated signs and symptoms: Pertinent positives: tightness in chest. Severity of symptoms: At their worst the symptoms were moderate. The patient has experienced similar episodes in the past, multiple times, today's symptoms are similar, to previous asthma exacerbation. The patient has not recently seen a physician, the patient's primary care provider is Dr. Dr. James. Historical: - Allergies: 10:03 MAYA INHIBITORS; hb 10:03 ARB-Angiotensin Receptor Antagonist; hb 10:03 Peanut; hb - Home Meds: 10:03 amlodipine oral [Active]; lisinopril 20 mg Oral tab 1 tab once daily [Active]; Protonix hb 40 mg Oral grps 1 packet once daily [Active]; - PMHx: 10:03 GERD; Hyperlipidemia; Hypertension; hb - PSHx: 10:03 None; hb - Immunization history:: Adult Immunizations up to date. - Social history:: Smoking status: Patient/guardian denies using tobacco. - Ebola Screening: : No symptoms or risks identified at this time. ROS: 10:33 Constitutional: Negative for fever, chills, and weight loss, Eyes: Negative for injury, snw pain, redness, and discharge, ENT: Negative for injury, pain, and discharge, Neck: Negative for injury, pain, and swelling, Cardiovascular: Negative for chest pain, palpitations, and edema, Abdomen/GI: Negative for abdominal pain, nausea, vomiting, diarrhea, and constipation, Back: Negative for injury and pain, : Negative for injury, bleeding, discharge, and swelling, MS/Extremity: Negative for injury and deformity, Skin: Negative for injury, rash, and discoloration, Neuro: Negative for headache, weakness, numbness, tingling, and seizure, Psych: Negative for depression, anxiety, suicide ideation, homicidal ideation, and hallucinations. 10:33 Respiratory: Positive for cough, wheezing. Exam: 10:23 Constitutional: This is a well developed, well nourished patient who is awake, alert, snw and in no acute distress. Head/Face: Normocephalic, atraumatic. Eyes: Pupils equal round and reactive to light, extra-ocular motions intact. Lids and lashes normal. Conjunctiva and sclera are non-icteric and not injected. Cornea within normal limits. Periorbital areas with no swelling, redness, or edema. ENT: Nares patent. No nasal discharge, no septal abnormalities noted. Tympanic membranes are normal and external auditory canals are clear. Oropharynx with no redness, swelling, or masses, exudates, or evidence of obstruction, uvula midline. Mucous membranes moist. Neck: Trachea midline, no thyromegaly or masses palpated, and no cervical lymphadenopathy. Supple, full range of motion without nuchal rigidity, or vertebral point tenderness. No Meningismus. Chest/axilla: Normal chest wall appearance and motion. Nontender with no deformity. No lesions are appreciated. Cardiovascular: Regular rate and rhythm with a normal S1 and S2. No gallops, murmurs, or rubs. Normal PMI, no JVD. No pulse deficits. Abdomen/GI: Soft, non-tender, with normal bowel sounds. No distension or tympany. No guarding or rebound. No evidence of tenderness throughout. Back: No spinal tenderness. No costovertebral tenderness. Full range of motion. Skin: Warm, dry with normal turgor. Normal color with no rashes, no lesions, and no evidence of cellulitis. MS/ Extremity: Pulses equal, no cyanosis. Neurovascular intact. Full, normal range of motion. Neuro: Awake and alert, GCS 15, oriented to person, place, time, and situation. Cranial nerves II-XII grossly intact. Motor strength 5/5 in all extremities. Sensory grossly intact. Cerebellar exam normal. Normal gait. Psych: Awake, alert, with orientation to person, place and time. Behavior, mood, and affect are within normal limits. 10:23 Respiratory: the patient does not display signs of respiratory distress, Respirations: normal, Breath sounds: are clear throughout, tight cough. Vital Signs: 10:02 BP 147 / 94; Pulse 100; Resp 20; Temp 97.7(TE); Pulse Ox 95% on R/A; Pain 0/10; hb MDM: 09:57 Patient medically screened. snw 10:32 Data reviewed: vital signs, nurses notes. Data interpreted: Pulse oximetry: on room air snw is 95 %. Interpretation: acceptable. Counseling: I had a detailed discussion with the patient and/or guardian regarding: the historical points, exam findings, and any diagnostic results supporting the discharge/admit diagnosis, the presence of at least one elevated blood pressure reading (>120/80) during this emergency department visit, the need for outpatient follow up, for definitive care, to return to the emergency department if symptoms worsen or persist or if there are any questions or concerns that arise at home. Special discussion: I have referred the patient to see his PCP for further evaluation of high blood pressure. Based on the history and exam findings, there is no indication for further emergent testing or inpatient evaluation. I discussed with the patient/guardian the need to see the primary care provider for further evaluation of the symptoms. Administered Medications: 10:17 Drug: Albuterol 2.5 mg Route: Inhalation; iw 10:18 Drug: predniSONE 20 mg Route: PO; iw Disposition: 10/14 08:16 Co-signature as Attending Physician, Gomez Mcneil MD I agree with the assessment and pat plan of care. Disposition: 10/13/18 10:22 Discharged to Home. Impression: Asthma. - Condition is Stable. - Discharge Instructions: Asthma, Adult, Asthma Attack Prevention, Adult. - Prescriptions for Zyrtec 10 mg Oral Tablet - take 1 tablet by ORAL route once daily As needed; 20 tablet. Prednisone 20 mg Oral Tablet - take 2 tablet by ORAL route once daily for 5 days; 10 tablet. Albuterol Sulfate 90 mcg/actuation - inhale 1-2 puff by INHALATION route every 4-6 hours; 1 Inhaler. - Medication Reconciliation Form, Thank You Letter, Antibiotic Education, Prescription Opioid Use, Work release form form. - Follow up: Malachi James MD; When: 5 - 6 days; Reason: Recheck today's complaints, Continuance of care, Re-evaluation by your physician. Follow up: Emergency Department; When: As needed; Reason: Worsening of condition. Signatures: Gomez Mcneil MD MD cha Therrien, Shelly, ASSEMBLY CLEANER-C ASSEMBLY CLEANER-Csnw Nemo Faulkner, RN RN iw Tracy Cross RN RN Corrections: (The following items were deleted from the chart) 10/13 10:57 10:22 10/13/2018 10:22 Discharged to Home. Impression: Asthma. Condition is Stable. iw Forms are Medication Reconciliation Form, Thank You Letter, Antibiotic Education, Prescription Opioid Use. Follow up: Malachi James; When: 5 - 6 days; Reason: Recheck today's complaints, Continuance of care, Re-evaluation by your physician. Follow up: Emergency Department; When: As needed; Reason: Worsening of condition. snw
--- NOTE | 2018-10-13 10:23 | ER ---
Nurse's Notes [facility] Name: Sunil Salinas Jr Age: 38 yrs Sex: Male : 1980 Arrival Date: 10/13/2018 Time: 09:53 Bed 7 Private MD: Malachi James Diagnosis: Asthma Presentation: 10/13 10:01 Presenting complaint: Patient states: SOB and chest tightness x 4 days. Transition of hb care: patient was not received from another setting of care. Onset of symptoms was October 09, 2018. Risk Assessment: Do you want to hurt yourself or someone else? Patient reports no desire to harm self or others. Care prior to arrival: None. 10:01 Method Of Arrival: Ambulatory hb 10:01 Acuity: JU 3 hb 10:05 Initial Sepsis Screen: Does the patient meet any 2 criteria? No. Patient's initial iw sepsis screen is negative. Does the patient have a suspected source of infection? No. Patient's initial sepsis screen is negative. Triage Assessment: 10:05 General: Appears in no apparent distress. Respiratory: Onset: The symptoms/episode iw began/occurred yesterday, the patient has mild shortness of breath. Respiratory: Respiratory effort is even, unlabored. Respiratory: Breath sounds are clear bilaterally. Respiratory: Historical: - Allergies: 10:03 MAYA INHIBITORS; hb 10:03 ARB-Angiotensin Receptor Antagonist; hb 10:03 Peanut; hb - Home Meds: 10:03 amlodipine oral [Active]; lisinopril 20 mg Oral tab 1 tab once daily [Active]; Protonix hb 40 mg Oral grps 1 packet once daily [Active]; - PMHx: 10:03 GERD; Hyperlipidemia; Hypertension; hb - PSHx: 10:03 None; hb - Immunization history:: Adult Immunizations up to date. - Social history:: Smoking status: Patient/guardian denies using tobacco. - Ebola Screening: : No symptoms or risks identified at this time. Screenin:30 Abuse screen: Denies threats or abuse. Denies injuries from another. Nutritional iw screening: No deficits noted. Tuberculosis screening: No symptoms or risk factors identified. Fall Risk None identified. Assessment: 10:18 General: Appears in no apparent distress. Behavior is calm, cooperative. General: iw Denies fever. Pain: Denies pain. Neuro: Level of Consciousness is awake, alert, obeys commands, Oriented to person, place, time, situation. Cardiovascular: Rhythm is regular. Respiratory: Airway is patent Respiratory effort is even, unlabored, Breath sounds are clear bilaterally. Respiratory: Reports shortness of breath cough that is. Derm: Skin is intact, is healthy with good turgor. Musculoskeletal: Range of motion: intact in all extremities. Vital Signs: 10:02 BP 147 / 94; Pulse 100; Resp 20; Temp 97.7(TE); Pulse Ox 95% on R/A; Pain 0/10; hb ED Course: 09:53 Patient arrived in ED. as 09:53 Malachi James MD is Private Physician. as 09: Carol Penn FNP-C is [facility]. snw 09:57 Gomez Mcneil MD is Attending Physician. snw 10:02 Triage completed. hb 10:02 Arm band placed on. hb 10:04 Nemo Faulkner, BLANCHE is Primary Nurse. iw 10:15 Malachi James MD is Referral Physician. snw 10:30 Patient has correct armband on for positive identification. iw 10:56 No provider procedures requiring assistance completed. Patient did not have IV access iw during this emergency room visit. Administered Medications: 10:17 Drug: Albuterol 2.5 mg Route: Inhalation; iw 10:18 Drug: predniSONE 20 mg Route: PO; iw Outcome: 10:22 Discharge ordered by MD. snw 10:56 Discharged to home ambulatory. iw 10:56 Condition: good 10:56 Discharge instructions given to patient, Instructed on discharge instructions, follow up and referral plans. medication usage, Demonstrated understanding of instructions, follow-up care, medications, Prescriptions given X 3. 10:57 Patient left the ED. iw Signatures: Carol Penn FNP-C PRECIPITATE WASHER-Csnw Bren Huston as Nemo Faulkner, BLANCHE RN iw Tracy Cross RN RN
[2018-10-13] MEDS ORDERED: ALBUTEROL 2.5 MG/3 ML NEB SOL ONE (10:24)
[2018-10-13] MEDS ORDERED: predniSONE 20 MG TAB ONE (10:25)
[2018-10-13 11:15] VITALS: BP 147/94; TEMP 97.7; O2SAT 95
== END 2018-10-13 10:57 | disposition home or self-care (01) ==
LOC: ER 09:50
DX: J45.909 Unspecified asthma, uncomplicated (principal); K21.9 Gastro-esophageal reflux disease without esophagitis; E78.5 Hyperlipidemia, unspecified; I10 Essential (primary) hypertension; Z88.8 Allergy status to other drugs, medicaments and biological substances; Z91.010 Allergy to peanuts
CPT/HCPCS: 99284; J7512

== ENCOUNTER 2018-10-20 20:15 | Emergency (ER) | payer BC ==
[2018-10-20 20:58] LABS: Absolute Lymphocytes (CBC) 2.5 K/uL (0.7-4.9); Absolute Monocytes 0.7 K/uL (0.1-1.3); Absolute Neutrophil 10.9 K/uL (1.8-8.0); Basophils % 0.7 % (0-1.3); Eosinophils % 1.6 % (0-4.4); Hematocrit 44.6 % (39.6-49.0); Lymphocytes % 17.3 % (15.3-44.8); MPV 8.5 fL (7.6-11.3); Monocytes % 4.6 % (3.3-12.3); RBC Red Blood Cell Count 5.12 M/uL (4.33-5.43)
[2018-10-20] MEDS ORDERED: NA CHLORIDE 0.9% 1,000 ML ONE (21:03)
[2018-10-20] MEDS ORDERED: LEVALBUTEROL 1.25 MG/3 ML NEB ONE (21:03)
[2018-10-20 21:14] LABS: BUN Blood Urea Nitrogen 16 mg/dL (7-18); Bicarbonate 28 mmol/L (21-32); Glucose Level 109 mg/dL (74-106); NT PRO-BNP 47 pg/mL (<125); Sodium Level 143 mmol/L (136-145)
--- NOTE | 2018-10-20 21:19 | RAD REPORT ---
EXAM DESCRIPTION: RAD - Chest Single View - 10/20/2018 8:59 pm CLINICAL HISTORY: Cough and congestion COMPARISON: April 2018 TECHNIQUE: AP portable chest image was obtained 4 hours . FINDINGS: Lungs are clear. Lung markings are similar to comparison. Heart and vasculature are normal . No measurable pleural effusion and no pneumothorax. No acute bony abnormality seen. No acute aortic findings suspected. IMPRESSION: No acute cardiopulmonary process. No significant interval change.
--- NOTE | 2018-10-20 22:48 | ER ---
Nurse's Notes [facility] Name: Sunil Salinas Jr Age: 38 yrs Sex: Male : 1980 Arrival Date: 10/20/2018 Time: 20:15 Bed 2 Private MD: Malachi James Diagnosis: Unspecified asthma with (acute) exacerbation;Cough Presentation: 10/20 20:21 Presenting complaint: Patient states: Seen here for cough, congestion; Diagnosed with lp1 asthma exacerbation; States no relief after prescriptions; Continued dry cough, congestion, pain to chest when coughing, continued shortness of breath. Transition of care: patient was not received from another setting of care. Onset of symptoms was October 20, 2018. Risk Assessment: Do you want to hurt yourself or someone else? Patient reports no desire to harm self or others. Care prior to arrival: None. 20:21 Method Of Arrival: Ambulatory lp1 20:21 Acuity: JU 3 lp1 20:39 Initial Sepsis Screen: Does the patient meet any 2 criteria? HR > 90 bpm. Does the tl2 patient have a suspected source of infection? No. Patient's initial sepsis screen is negative. Historical: - Allergies: 20:24 Peanut; lp1 20:24 MAYA INHIBITORS; lp1 20:24 ARB-Angiotensin Receptor Antagonist; lp1 - Home Meds: 20:24 amlodipine oral [Active]; Protonix 40 mg Oral grps 1 packet once daily [Active]; lp1 - PMHx: 20:24 GERD; Hyperlipidemia; Hypertension; lp1 - PSHx: 20:24 None; lp1 - Immunization history:: Adult Immunizations up to date, Flu vaccine is not up to date. - Social history:: Smoking status: Patient/guardian denies using tobacco. - Ebola Screening: : No symptoms or risks identified at this time. - Family history:: not pertinent. - Hospitalizations: : No recent hospitalization is reported. Screenin:36 Abuse screen: Denies threats or abuse. Nutritional screening: No deficits noted. tl2 Tuberculosis screening: No symptoms or risk factors identified. Fall Risk None identified. Assessment: 20:36 General: Appears in no apparent distress. uncomfortable, Behavior is calm, cooperative, tl2 appropriate for age. Pain: Complains of pain in left clavicle, anterior aspect of left upper chest and mid-sternal area Pain does not radiate. Pain began 1 week ago Aggravated by cough and deep breathing. Neuro: Level of Consciousness is awake, alert, obeys commands, Oriented to person, place, time, situation. Cardiovascular: Chest pain is described as mild, quality is sharp. Respiratory: Reports shortness of breath cough that is non-productive, persistent pain with cough Airway is patent Respiratory effort is even, unlabored, Respiratory pattern is regular, symmetrical, Breath sounds are clear bilaterally. GI: No signs and/or symptoms were reported involving the gastrointestinal system. : No signs and/or symptoms were reported regarding the genitourinary system. Derm: Skin is pink, warm \T\ dry. 22:14 Reassessment: Patient appears in no apparent distress at this time. No changes from tl2 previously documented assessment. Patient and/or family updated on plan of care and expected duration. Pain level reassessed. Patient is alert, oriented x 3, equal unlabored respirations, skin warm/dry/pink. 23:02 Reassessment: Patient appears in no apparent distress at this time. Patient and/or tl2 family updated on plan of care and expected duration. Pain level reassessed. Patient is alert, oriented x 3, equal unlabored respirations, skin warm/dry/pink. pt verbalized understanding of discharge instructions, need for follow up and prescription usage Patient states feeling better. Vital Signs: 20:23 BP 175 / 98; Pulse 122; Resp 20; Temp 99(O); Pulse Ox 97% on R/A; Weight 121.56 kg; lp1 Height 5 ft. 8 in. (172.72 cm); Pain 5/10; 21:00 BP 148 / 90; Pulse 106; Resp 20; Pulse Ox 100% on Nebulizer Mask; tl2 23:02 BP 151 / 89; Pulse 110; Resp 18; Pulse Ox 99% on R/A; tl2 20:23 Body Mass Index 40.75 (121.56 kg, 172.72 cm) lp1 ED Course: 20:15 Patient arrived in ED. do 20:16 Malachi James MD is Private Physician. do 20:23 Triage completed. lp1 20:23 Arm band placed on right wrist. lp1 20:25 Rojas Roman MD is Attending Physician. rn 20:36 Branham, Savana, RN is Primary Nurse. tl2 20:36 Patient has correct armband on for positive identification. Bed in low position. Call tl2 light in reach. Side rails up X 1. Pulse ox on. NIBP on. 20:36 Patient maintains SpO2 saturation greater than 95% on room air. tl2 20:45 Inserted saline lock: 20 gauge in right antecubital area, using aseptic technique. tl2 Blood collected. 20:59 XRAY Chest (1 view) In Process Unspecified. EDMS 22:48 Malachi James MD is Referral Physician. rn 23:02 No provider procedures requiring assistance completed. IV discontinued, intact, tl2 bleeding controlled, No redness/swelling at site. Pressure dressing applied. Administered Medications: 20:59 Drug: NS 0.9% 1000 ml Route: IV; Rate: 1000 ml; Site: right antecubital; tl2 22:00 Follow up: IV Status: Completed infusion; IV Intake: 1000ml tl2 20:59 Drug: Xopenex (3) 1.25 mg Route: Inhalation; tl2 22:00 Follow up: Response: No adverse reaction; Marked relief of symptoms tl2 Intake: 22:00 IV: 1000ml; Total: 1000ml. tl2 Outcome: 22:48 Discharge ordered by . rn 23:02 Discharged to home ambulatory. tl2 23:02 Condition: stable 23:02 Discharge instructions given to patient, Instructed on discharge instructions, follow up and referral plans. medication usage, Demonstrated understanding of instructions, follow-up care, medications, Prescriptions given X 1. 23:04 Patient left the ED. tl2 Signatures: Dispatcher [employer] EDMN Rojas Roman MD MD rn Pena, Laura, RN RN lp1 Joana Brumfield Taylor RN RN tl2
--- NOTE | 2018-10-20 22:48 | EDPHYS ---
Physician Documentation [facility] Name: Sunil Salinas Jr Age: 38 yrs Sex: Male : 1980 Arrival Date: 10/20/2018 Time: 20:15 Bed 2 Private MD: Malachi James ED Physician Rojas Roman HPI: 10/20 20:45 This 38 yrs old Male presents to ER via Ambulatory with complaints of Chest rn Pain, Shortness Of Breath, Ear Pain. 20:45 The patient or guardian reports chest pain that is located primarily in the anterior rn chest wall. The pain does not radiate. 20:45 The patient has shortness of breath with light activity. Onset: The symptoms/episode rn began/occurred 1 week(s) ago. Duration: The symptoms are intermittent. The patient's shortness of breath is aggravated by exertion, light activity. Severity of symptoms: At their worst the symptoms were moderate in the emergency department the symptoms have improved. The patient has experienced similar episodes in the past. The patient has been recently seen by a physician:. Reports shortness of breath and chest pain, for 1 week, seen here, diagnosed with asthma exacerbation, improved, seen by pcp, told same thing, has been on steroids for 1 week, reports still coughing, non-productive, cough is annoying, and having sharp stabbing chest pain with cough and feels chest rattle. . Historical: - Allergies: 20:24 Peanut; lp1 20:24 MAYA INHIBITORS; lp1 20:24 ARB-Angiotensin Receptor Antagonist; lp1 - Home Meds: 20:24 amlodipine oral [Active]; Protonix 40 mg Oral grps 1 packet once daily [Active]; lp1 - PMHx: 20:24 GERD; Hyperlipidemia; Hypertension; lp1 - PSHx: 20:24 None; lp1 - Immunization history:: Adult Immunizations up to date, Flu vaccine is not up to date. - Social history:: Smoking status: Patient/guardian denies using tobacco. - Ebola Screening: : No symptoms or risks identified at this time. - Family history:: not pertinent. - Hospitalizations: : No recent hospitalization is reported. ROS: 20:45 Constitutional: Negative for fever, chills, and weight loss, Neck: Negative for injury, rn pain, and swelling, Cardiovascular: Negative for palpitations, and edema, Respiratory: + sob Abdomen/GI: Negative for abdominal pain, nausea, vomiting, diarrhea, and constipation, MS/Extremity: Negative for injury and deformity, Skin: Negative for injury, rash, and discoloration, Neuro: Negative for headache, weakness, numbness, tingling, and seizure. Exam: 20:45 Constitutional: This is a well developed, well nourished patient who is awake, alert, rn and in no acute distress. Walked to room without difficulty Head/Face: Normocephalic, atraumatic. Eyes: Pupils equal round and reactive to light, extra-ocular motions intact. Lids and lashes normal. Conjunctiva and sclera are non-icteric and not injected. Cornea within normal limits. Periorbital areas with no swelling, redness, or edema. ENT: MMM, no stridor Neck: Trachea midline, no thyromegaly or masses palpated, and no cervical lymphadenopathy. Supple, full range of motion without nuchal rigidity, or vertebral point tenderness. No Meningismus. Cardiovascular: Tachycardic, regular, no murmur Respiratory: Lungs have equal breath sounds bilaterally, no wheezing noted, mild tachypnea Abdomen/GI: soft, non-tender Skin: Warm, dry MS/ Extremity: Pulses equal, no cyanosis. Neurovascular intact. Full, normal range of motion. Equal circumference. Neuro: Awake and alert, GCS 15, oriented to person, place, time, and situation. Cranial nerves II-XII grossly intact. Motor strength 5/5 in all extremities. Sensory grossly intact. Cerebellar exam normal. Normal gait. Vital Signs: 20:23 BP 175 / 98; Pulse 122; Resp 20; Temp 99(O); Pulse Ox 97% on R/A; Weight 121.56 kg; lp1 Height 5 ft. 8 in. (172.72 cm); Pain 5/10; 21:00 BP 148 / 90; Pulse 106; Resp 20; Pulse Ox 100% on Nebulizer Mask; tl2 23:02 BP 151 / 89; Pulse 110; Resp 18; Pulse Ox 99% on R/A; tl2 20:23 Body Mass Index 40.75 (121.56 kg, 172.72 cm) lp1 MDM: 20:25 Patient medically screened. rn 22:46 Differential diagnosis: asthma, Bronchitis CHF exacerbation, Myocardial Infarction rn pneumonia, Pneumothorax pulmonary edema, reactive airway disease. Data reviewed: vital signs, nurses notes, lab test result(s), EKG, radiologic studies, plain films, and as a result, I will discharge patient. Counseling: I had a detailed discussion with the patient and/or guardian regarding: the historical points, exam findings, and any diagnostic results supporting the discharge/admit diagnosis, lab results, radiology results, the need for outpatient follow up, to return to the emergency department if symptoms worsen or persist or if there are any questions or concerns that arise at home. Response to treatment: the patient's symptoms have markedly improved after treatment, the patient's condition has returned to base line, the patient is now symptom free, and as a result, I will discharge patient. Special discussion: I discussed with the patient/guardian in detail that at this point there is no indication for admission to the hospital. It is understood, however, that if the symptoms persist or worsen the patient needs to return immediately for re-evaluation. Based on the history and exam findings, there is no indication for further emergent testing or inpatient evaluation. I discussed with the patient/guardian the need to see the primary care provider for further evaluation of the symptoms. I discussed with the patient/guardian the need to see the manager statistics for further evaluation of the symptoms. ED course: Pt back to baseline, states nebs help but only has inhaler at home, cxr negative, flu/strep neg, will dc home with albuterol, has nebulizer machine at home. Most likely viral syndrome with asthma exacerbation. . 10/20 20:38 Order name: CBC with Diff; Complete Time: 21:46 rn 10/20 20:38 Order name: Basic Metabolic Panel; Complete Time: :46 rn 10/20 20:38 Order name: Flu; Complete Time: 21:46 rn 10/20 20:38 Order name: Strep; Complete Time: 21:46 rn 10/20 20:38 Order name: N-Terminal Pro-brain Natriuretic Peptide; Complete Time: 21:46 rn 10/20 21:08 Order name: Throat Culture EDOK 10/20 20:38 Order name: XRAY Chest (1 view); Complete Time: 21:46 rn 10/20 20:38 Order name: IV Start; Complete Time: 20:49 rn 10/20 20:38 Order name: EKG; Complete Time: 20:38 rn 10/20 20:38 Order name: EKG - Nurse/Tech; Complete Time: 20:49 rn Administered Medications: 20:59 Drug: NS 0.9% 1000 ml Route: IV; Rate: 1000 ml; Site: right antecubital; tl2 22:00 Follow up: IV Status: Completed infusion; IV Intake: 1000ml tl2 20:59 Drug: Xopenex (3) 1.25 mg Route: Inhalation; tl2 22:00 Follow up: Response: No adverse reaction; Marked relief of symptoms tl2 Disposition: 10/20/18 22:48 Discharged to Home. Impression: Unspecified asthma with (acute) exacerbation, Cough. - Condition is Stable. - Discharge Instructions: Asthma, Adult, Cough, Adult. - Prescriptions for Albuterol Sulfate 2.5 mg /3 mL (0.083 %) Inhalation Solution for Nebulization - inhale 1 unit by NEBULIZATION route every 8 hours As needed; 1 box. - Medication Reconciliation Form, Thank You Letter, Antibiotic Education, Prescription Opioid Use, Work release form form. - Follow up: Malachi James MD; When: 2 - 3 days; Reason: Recheck today's complaints, Re-evaluation by your physician. - Problem is an ongoing problem. - Symptoms have improved. Signatures: Dispatcher [employer] EDRojas Mercer MD MD rn Pena, Laura, RN RN lp1 Savana Branham RN RN tl2 Corrections: (The following items were deleted from the chart) 23:04 22:48 10/20/2018 22:48 Discharged to Home. Impression: Unspecified asthma with (acute) tl2 exacerbation; Cough. Condition is Stable. Forms are Medication Reconciliation Form, Thank You Letter, Antibiotic Education, Prescription Opioid Use. Follow up: Malachi James; When: 2 - 3 days; Reason: Recheck today's complaints, Re-evaluation by your physician. Problem is an ongoing problem. Symptoms have improved. rn
[2018-10-21 01:25] VITALS: TEMP 99
[2018-10-21 01:27] VITALS: BP 151/89; O2SAT 99
--- NOTE | 2018-10-21 05:51 | EKG ---
Test Date: 2018-10-20 Test Time: 20:46:27 Instructional Coach: RADHA MEASUREMENT RESULTS: Intervals: Rate: 102 MA: 218 QRSD: 84 QT: 330 QTc: 430 [place]: P: 51 MA: 218 QRS: 3 T: 33 INTERPRETIVE STATEMENTS: Sinus tachycardia with 1st degree AV block Otherwise normal ECG Compared to ECG 04/15/2018 22:22:33 Sinus rhythm no longer present Electronically Signed On 10-21-18 05:50:28 CDT by Eric Stone
== END 2018-10-20 23:04 | disposition home or self-care (01) ==
LOC: ER 20:15
DX: J45.901 Unspecified asthma with (acute) exacerbation (principal); R05 Cough; I10 Essential (primary) hypertension; E78.5 Hyperlipidemia, unspecified; Z88.8 Allergy status to other drugs, medicaments and biological substances; Z91.010 Allergy to peanuts
CPT/HCPCS: 36415; 71045; 80048; 83880; 85025; 87070; 87081; 87804; 93005; 96360; 99285; J7030